=== PATIENT | female | born 1960 | race Caucasian/White ===

== ENCOUNTER → 2017-03-16 | Outpatient (CLI) | payer BC ==
[~2017-03-16] MED LIST: LEVOTHYROXINE0.2 M1 PO; NORCO 5-325 TA1 EACH PO; PREVACID15 MG PO; VITAMIN B-650 M1 PO; VITAMIN D31000 UNI2 PO; ZYRTEC 10 MG TA10 M1 PO; ZYRTEC 10 MG TA10 MG PO
== END ==
LOC: RAD 09:45
DX: Z12.31 Encounter for screening mammogram for malignant neoplasm of breast (principal)

== ENCOUNTER → 2018-11-10 | Outpatient (CLI) | payer BC | LOC: RAD 08:16 | DX: Z12.31 Encounter for screening mammogram for malignant neoplasm of breast (principal) ==

== ENCOUNTER → 2020-01-10 | Outpatient (CLI) | payer BC | LOC: BC 11:35 | DX: Z12.31 Encounter for screening mammogram for malignant neoplasm of breast (principal) ==

== ENCOUNTER → 2020-12-01 | Outpatient (CLI) | payer OTHER | LOC: RAD 09:54 | DX: Z12.31 Encounter for screening mammogram for malignant neoplasm of breast (principal); N64.89 Other specified disorders of breast ==